=== PATIENT | male | born 1950 | race Caucasian/White ===

== ENCOUNTER 2020-05-26 14:22 | Emergency (ER) | payer OTHER, SELFPAY ==
--- NOTE | ~2020-05-26 | CT_ITS ---
EXAMINATION: CT HEAD/BRAIN WITHOUT CONTRAST CLINICAL INFORMATION: Trauma COMPARISON: None. TECHNIQUE: CT scanning from base of skull to vertex performed without IV contrast administration. This CT examination was performed using dose optimization techniques as appropriate, variously including the following: *Automated exposure control *Adjustment of mA and/or kV according to patient size (this includes techniques or standardized protocols for targeted exams where dose is matched to indication/reason for exam; i.e. extremities or head) *Use of iterative reconstruction technique DLP: 818 mGy-cm. FINDINGS: The ventricles, sulci, and cisterns appear unremarkable. No abnormal extra-axial fluid collection or intracranial hemorrhage is seen. No significant mass effect or midline structure shift is evident. There is a region of diminished density seen about the right frontal horn and frontal lobe consistent with vascular insult of unsure chronicity. There is also noted to be a region of diminished density about the anterior limb of the left internal capsule CT/CT facial bones wo con IMPRESSION: Regions of diminished density about the right frontal lobe and anterior limb of the left internal capsule consistent with vascular events. These are likely chronic. No intracranial hemorrhage or significant mass effect identified. EXAMINATION: CT FACIAL BONES WITHOUT CONTRAST CLINICAL INFORMATION: Head injury with head and facial pain COMPARISON: None. TECHNIQUE: CT scanning of the facial bones with coronal and sagittal reconstruction. This CT examination was performed using dose optimization techniques as appropriate, variously including the following: *Automated exposure control *Adjustment of mA and/or kV according to patient size (this includes techniques or standardized protocols for targeted exams where dose is matched to indication/reason for exam; i.e. extremities or head) *Use of iterative reconstruction technique DLP: 296 FINDINGS: No acute facial bone fractures identified. There is soft tissue swelling seen overlying the right orbit and frontal region. Small amount of gas is seen within the underlying soft tissues but without definite communication to sinuses. Paranasal sinuses are aerated without air-fluid levels. Small mucus retention cyst seen within the left maxillary sinus. Ostiomeatal complexes patent bilaterally. Mastoid air cells are aerated bilaterally. There is deviation of calcified nasal septum to the left centrally and into the right distally. Pterygoid plates intact. Temporomandibular joints unremarkable. Carotid artery calcifications are evident. IMPRESSION: No acute facial bone fracture. Soft tissue swelling overlying the right orbit and frontal region. No intraconal abnormality identified.
--- NOTE | ~2020-05-26 | CT_ITS ---
EXAMINATION: CT ORBIT WITH CONTRAST CLINICAL INFORMATION: Trauma to the eye. Question global rupture. COMPARISON: CT head 05/26/2020 TECHNIQUE: 3 mm thin axial and reformatted 2 mm thin sagittal and coronal images of orbits were obtained. This CT examination was performed using dose optimization techniques as appropriate, variously including the following: *Automated exposure control *Adjustment of mA and/or kV according to patient size (this includes techniques or standardized protocols for targeted exams where dose is matched to indication/reason for exam; i.e. extremities or head) *Use of iterative reconstruction technique DLP: 251 mGy-cm FINDINGS: Moderate right preseptal soft tissue swelling with soft tissue gas. There is no post septal soft tissue swelling. The right optic globe is intact. Bilateral intraocular lenses are intact as well. The bony orbits including lamina papyracea is intact. Bilateral extraocular musculature is intact. Bilateral paranasal sinuses and drainage pathways are widely patent. There is mark bullosa bilateral middle turbinates. The nasal septum is deviated to the left with a moderate-sized spur. The endometrium and the nasal cavity and nasopharynx is patent. Bilateral mastoid air cells are well-aerated. Visualized intracranial brain parenchyma is unremarkable. The maxillofacial soft tissues are normal. The parapharyngeal soft tissues are normal. CT/CT orbit BI w con IMPRESSION: Moderate right preseptal soft tissue swelling with soft tissue gas formation. No post septal soft tissue swelling or edema seen. The optic globes bilaterally are intact and symmetrical. The bony orbits including lamina papyracea intact The sinuses are clear.
[2020-05-26 14:49] VITALS: BP 145/86; PULSE 80; RESP 16; TEMP 37.1; O2SAT 95; BMI 30.9
[2020-05-26] MEDS: Diphth,Pertus(ACell),Tet Adult 0.5 ML SYRINGE IM (16:11)
[2020-05-26] MEDS: 0.9 % Sodium Chloride 1,000 ML 999 ML IVCONT (16:40)
[2020-05-26] MEDS: Lidocaine HCl 1 % MPF 5 ML VIAL SUBCUT (16:41)
[2020-05-26] MEDS: Tetracaine HCl/PF 0.5% Oph Sol 4 ML DROPS 3 DROP EYE-RIGHT (16:41)
[2020-05-26] MEDS: Fluorescein Sodium STRIP 1 STRIP EYE-BOTH (16:41)
[2020-05-26 16:42] LABS: MANUAL DIFF FLAG NO
[2020-05-26 16:50] LABS: Basophils Absolute Auto 0.1 X10*3/uL (0.0-0.2); Basophils Percent Auto 0.5 % (0-2); Eosinophils Absolute Auto 0.1 X10*3/uL (0.0-0.4); Hematocrit 44.4 % (42-52); Hemoglobin 14.7 g/dl (14.0-18.0); Imm Gran Abs Auto 0.07 X10*3/uL (0.00-0.03); Imm Gran Pct Auto 0.7 % (0.0-0.4); Lymphocytes Absolute Auto 0.9 X10*3/uL (1.2-4.9); Lymphocytes Percent Auto 8.4 % (20-40); Mean Corpuscular HGB Conc 33.1 g/dl (31.0-36.0); Mean Corpuscular Hemoglobin 32.4 pg (27.0-33.0); Mean Corpuscular Volume 97.8 fL (80-98); Mean Platelet Volume 10.4 fL (9.4-12.4); Monocytes Percent Auto 9.6 % (2-11); Neutrophils Absolute Auto 8.4 X10*3/uL (2.0-8.3); Neutrophils Percent Auto 79.8 % (45-73); Platelet Count 171 X10*3/uL (160-400); Red Blood Count 4.54 X10*6/uL (4.60-5.80); Red Cell Distribution Width 13.7 % (11.0-16.0); White Blood Count 10.5 X10*3/uL (4.8-10.8)
--- NOTE | 2020-05-26 17:03 | ED_ITS ---
HPI - Wound/Laceration General Chief Complaint: Wound/Laceration Stated Complaint: HEAD LACERATION WORK RELATED Time Seen by Provider: 05/26/20 15:28 Source: patient Mode of arrival: ambulatory Limitations: no limitations History of Present Illness HPI narrative: 69-year-old male presenting to the ED with a laceration to his right forehead prior to arrival at work when he went to bend over and did not notice there was a sheet of metal where he bent over and this is how he sustained a laceration. He reports that he had his safety glasses on and they flew off he immediately put his hand over his eye and then came here to the emergency department for further evaluation and treatment. Reports mild blurry vision to the right eye. patient denies any other injuries complaints or concerns at this time. Reports he is not up-to-date on tetanus. Related Data Previous Rx's Medication Instructions Recorded acetaminophen [Tylenol Extra 1,000 mg PO QID PRN #14 tab 05/26/20 Strength] cephalexin 500 mg PO BID 10 Days #20 cap 05/26/20 doxycycline monohydrate 100 mg PO BID 10 Days #20 cap 05/26/20 erythromycin 1 appl OPHTHALMIC (EYE) TID 5 Days 05/26/20 #3.5 g oxycodone 5 mg PO BID PRN #10 tab 05/26/20 Allergies Allergy/AdvReac Type Severity Reaction Status Date / Time No Known Allergies Allergy Unverified 11/06/19 18:53 [No Known Allergies*] Review of Systems Review of Systems: Constitutional : No Fever, No Chills, Cardiovascular : No Chest Pain, No SOB Respiratory : No Dyspnea Gastrointestinal : No abdominal pain Musculoskeletal : No Joint Swelling Skin : positive skin laceration, No Foreign bodies, No rash, No surrounding erythema Neuro : No Weakness, No Numbness/tingling Psych : No SI/HI/thoughts of self injury Yes all other systems are reviewed and are negative COUNTS INCLUDE 234 BEDS AT THE [facility] Past Medical History Attestation statement: The following information was validated with the patient. Medical History High cholesterol HTN (hypertension) Social History Social History Smoking Status: Current every day smoker Smoked in Last 30 Days: Yes Use of substances other than those prescribed or required for medical reasons: No Advance Directives: No Advance Directives Information Provided: No Physical Exam Vital Signs: Vital Signs: Last Vital Signs Temp 98.7 F 05/26/20 14:49 Pulse 80 05/26/20 14:49 Resp 16 05/26/20 14:49 BP 145/86 H 05/26/20 14:49 Pulse Ox 95 05/26/20 14:49 Body Mass Index 30.9 vital signs have been reviewed as normal and appeared to be correct. Blood pressure normal. Heart rate normal. Respiration rate normal. Temperature normal. Oxygen saturation normal. Appearance: Alert. Oriented X3. No acute distress. Head: To right forehead patient has a 3 cm intermediate laceration almost resembles a T. no foreign bodies or active bleeding. Eyes: Patient unable to open his right eye without assistance due to moderate soft tissue swelling and ecchymosis and To right eye scleral aspect patient has a subconjunctival hemorrhage unsure if global rupture at this time although PERRLA. EOMI. The left Conjunctiva and sclera normal. The left Eyelids normal. ENT:Pharynx normal. Uvula midline. Moist mucous membranes. Neck: Normal inspection. Neck supple. FROM. No adenopathy. Thyroid Normal. No meningeal signs. No neck mass noted. CVS: Normal heart rate and rhythm. Heart sound normal. No murmurs noted. Pulses normal throughout. Respiratory: No respiratory distress. Painless inspiration. Breath sounds normal. No wheezes/rales/rhonchi noted. Chest nontender. No accessory muscle usage noted or decreased air movement noted. Back: Full range of motion noted. Skin: Skin warm and dry. Normal skin color. Normal skin turgor. No rashes/lesions/lacerations noted. Extremities: Extremities exhibit normal range of motion. Extremities nontender. Neuro: Oriented X 3. No motor deficit. No sensory deficit. Reflexes normal. Course Course Course Narrative: 69-year-old male presenting to the ED with laceration to his right eyebrow in trauma to the right eye/orbital aspect. Unable to perform v isual acuity due to patient unable to open his right eye without assistance otherwise patient has extraocular movements intact. Pupils are equal and reactive to light. No fluorescein uptake noted. No foreign bodies noted. Therefore patient will need a CT scan of brain/facial bones and orbital CT with IV contrast. Patient is now status post laceration repair with [address] Patient tolerated procedure well no complications. Tetanus updated at this time. - labs obtained and within normal limits. - CT scan of brain/facial bones revealed soft tissue swelling no acute processes noted. - patient is currently awaiting orbital CT with IV contrast - Sign out to [facility] at this time pending orbital CT with IV contrast Procedures Laceration Laceration 1: Site: face Side (If applicable): right Size (cm): 3 Description: linear and flap Depth: involves muscle layer Local Anesthetic: lidocaine 1% Amount of anesthesia used (mL): 4 Pre-repair: wound explored, irrigated extensively and deep structures intact Skin layer closed with: nylon Size (cm): 5-0 Number of sutures: 10 Technique: simple, interrupted MDM - Wound/Laceration Medical Records Attestation: I reviewed the patient's medical records. Lab Data Attestation: I reviewed the patient's lab results. Result diagrams: 05/26/20 16:33 05/26/20 16:33 Labs: Lab Results 05/26/20 Range/Units 16:33 WBC 10.5 (4.8-10.8) X10*3/uL RBC 4.54 L (4.60-5.80) X10*6/uL Hgb 14.7 (14.0-18.0) g/dl Hct 44.4 (42-52) % MCV 97.8 (80-98) fL MCH 32.4 (27.0-33.0) pg MCHC 33.1 (31.0-36.0) g/dl RDW 13.7 (11.0-16.0) % Plt Count 171 (160-400) X10*3/uL MPV 10.4 (9.4-12.4) fL Immature Gran % (Auto) 0.7 H (0.0-0.4) % Neut % (Auto) 79.8 H (45-73) % Lymph % (Auto) 8.4 L (20-40) % [place] % (Auto) 9.6 (2-11) % Eos % (Auto) 1.0 (0-4) % Baso % (Auto) 0.5 (0-2) % Lymph # (Auto) 0.9 L (1.2-4.9) X10*3/uL [place] # (Auto) 1.0 (0.1-1.2) X10*3/uL Eos # (Auto) 0.1 (0.0-0.4) X10*3/uL Baso # (Auto) 0.1 (0.0-0.2) X10*3/uL Abs Immat Gran (auto) 0.07 H (0.00-0.03) X10*3/uL Absolute Neuts (auto) 8.4 H (2.0-8.3) X10*3/uL Absolute Nucleated RBC 0.000 (0.0-0.012) X10*3/uL Nucleated RBC % (auto) 0.0 (0.0-0.2) /100WBC Imaging Data CT scan of brain/facial bones: Attestation: I personally reviewed and interpreted this imaging study as follows: Radiologist's impression: FINDINGS: The ventricles, sulci, and cisterns appear unremarkable. No abnormal extra-axial fluid collection or intracranial hemorrhage is seen. No significant mass effect or midline structure shift is evident. There is a region of diminished density seen about the right frontal horn and frontal lobe consistent with vascular insult of unsure chronicity. There is also noted to be a region of diminished density about the anterior limb of the left internal capsule CT/CT head/brain wo con IMPRESSION: Regions of diminished density about the right frontal lobe and anterior limb of the left internal capsule consistent with vascular events. These are likely chronic. No intracranial hemorrhage or significant mass effect identified. EXAMINATION: CT FACIAL BONES WITHOUT CONTRAST CLINICAL INFORMATION: Head injury with head and facial pain COMPARISON: None. TECHNIQUE: CT scanning of the facial bones with coronal and sagittal reconstruction. This CT examination was performed using dose optimization techniques as appropriate, variously including the following: *Automated exposure control *Adjustment of mA and/or kV according to patient size (this includes techniques or standardized protocols for targeted exams where dose is matched to indication/reason for exam; i.e. extremities or head) *Use of iterative reconstruction technique DLP: 296 FINDINGS: No acute facial bone fractures identified. There is soft tissue swelling seen overlying the right orbit and frontal region. Small amount of gas is seen within the underlying soft tissues but without definite communication to sinuses. Paranasal sinuses are aerated without air-fluid levels. Small mucus retention cyst seen within the left maxillary sinus. Ostiomeatal complexes patent bilaterally. Mastoid air cells are aerated bilaterally. There is deviation of calcified nasal septum to the left centrally and into the right distally. Pterygoid plates intact. Temporomandibular joints unremarkable. Carotid artery calcifications are evident. IMPRESSION: No acute facial bone fracture. Soft tissue swelling overlying the right orbit and frontal region. No intraconal abnormality identified. Critical Care Time Critical Care Time Critical Care Time: Yes Total Critical Care Time: 60 Attestation: I personally attest to this time spent taking care of the patient Discharge Plan Discharge Clinical Impression: Laceration, Traumatic ecchymosis of right eye Prescriptions: New erythromycin 5 mg/gram (0.5 %) ointment 1 appl ophthalmic (eye) TID 5 Days Qty: 3.5 RF: 0 acetaminophen [Tylenol Extra Strength] 500 mg tablet 1,000 mg PO QID PRN (Reason: fever or pain) Qty: 14 RF: 0 doxycycline monohydrate 100 mg capsule 100 mg PO BID 10 Days Qty: 20 RF: 0 cephalexin 500 mg capsule 500 mg PO BID 10 Days Qty: 20 RF: 0 oxycodone 5 mg tablet 5 mg PO BID PRN (Reason: pain) Qty: 10 RF: 0 Referrals: Mike Elliott [Physician] - 1 day Carleen Chavez PA [Emergency Midlevel Provider] - 5 days (For suture removal) Stand Alone Forms: Work/School Release
[2020-05-26 17:07] LABS: Prothrombin Time 11.7 SEC (10.8-13.0)
[2020-05-26 17:12] LABS: COVID-19 Test Negative (Negative)
[2020-05-26 17:16] LABS: Alanine Aminotransferase 35 U/L (0-40); Albumin Level 4.5 g/dL (3.5-5.0); Alkaline Phosphatase 115 U/L (39-117); Anion Gap 13 (12-20); Aspartate Amino Transferase 44 U/L (5-37); Bilirubin Direct 0.3 mg/dL (0.0-0.5); Blood Urea Nitrogen 22 mg/dL (9-16); Calcium 9.7 mg/dL (8.4-10.2); Carbon Dioxide 29 mmol/L (22-29); Chloride 102 mmol/L (96-108); Estimated Glomerular Filt Rate > 60; Glucose Random 92 mg/dL (60-115); Magnesium 2.2 mg/dL (1.6-2.6); Potassium 5.4 mmol/L (3.3-5.1); Sodium 139 mmol/L (135-145); Total Protein 7.5 g/dL (6.5-8.0)
--- NOTE | 2020-05-26 17:34 | PC.NURSE ---
PT UNABLE TO HAVE EYE OPEN DO TO SWELLING FOR VISUAL IQ TEST.
[2020-05-26] MEDS: iohexoL 350 MG/ML 100 ML INFUS..BTL IV (18:26)
== END 2020-05-26 20:49 | disposition home or self-care (01) ==
PROVIDERS: Physician Assistant Medical; Emergency Provider Emergency Medicine Emergency Medical Services; PCP Family Medicine
DX: S01.81XA Laceration without foreign body of other part of head, initial encounter (principal); G44.309 Post-traumatic headache, unspecified, not intractable; W01.0XXA Fall on same level from slipping, tripping and stumbling without subsequent striking against object, initial encounter; Y93.9 Activity, unspecified; Y92.69 Other specified industrial and construction area as the place of occurrence of the external cause; Y99.0 Civilian activity done for income or pay; Z20.822 Contact with and (suspected) exposure to COVID-19; Z79.899 Other long term (current) drug therapy; F17.210 Nicotine dependence, cigarettes, uncomplicated; Z71.6 Tobacco abuse counseling
CPT/HCPCS: 12052; 36415; 70450; 70481; 70486; 80048; 80076; 83735; 85025; 85610; 87635; 90471; 90715; 96360; 99284; Q9967

== ENCOUNTER 2020-06-01 11:27 | Emergency (ER) | payer OTHER, SELFPAY ==
[2020-06-01 11:34] VITALS: BP 190/80; PULSE 65; RESP 16; TEMP 36.9; O2SAT 98; BMI 26.4
--- NOTE | 2020-06-01 11:52 | ED.WOUNDLAC ---
HPI - Wound/Laceration General Chief Complaint: Wound/Laceration <WAGNER Bello - Last Filed: 06/05/20 11:16> Stated Complaint: suture removal <WAGNER Bello - Last Filed: 06/05/20 11:16> Time Seen by Provider: 06/01/20 11:52 <WAGNER Bello - Last Filed: 06/05/20 11:16> History of Present Illness HPI narrative: Patient presents for suture removal after an injury 5 days ago which was sutured here in the ER, the patient denies any fever or swelling or redness or discharge from the wound which is above his right eyebrow, he also has some swelling around the eye and has already followed up with an eye doctor who said no further treatment needed for the eye and he is seeing normally out of the eye <WAGNER Bello - Last Filed: 06/05/20 11:16> Related Data Home Medications: Previous Rx's Medication Instructions Recorded acetaminophen [Tylenol Extra 1,000 mg PO QID PRN #14 tab 05/26/20 Strength] cephalexin 500 mg PO BID 10 Days #20 cap 05/26/20 doxycycline monohydrate 100 mg PO BID 10 Days #20 cap 05/26/20 erythromycin 1 appl OPHTHALMIC (EYE) TID 5 Days 05/26/20 #3.5 g oxycodone 5 mg PO BID PRN #10 tab 05/26/20 <WAGNER Bello - Last Filed: 06/05/20 11:16> Allergies/Adverse Reactions: Allergies Allergy/AdvReac Type Severity Reaction Status Date / Time No Known Allergies Allergy Unverified 11/06/19 18:53 [No Known Allergies*] <WAGNER Bello - Last Filed: 06/05/20 11:16> Review of Systems Review of Systems: Presents for suture removal No fever no chills no redness no warmth no pain no discharge from wound no numbness or tingling <WAGNER Bello Last Filed: 06/05/20 11:16> PMFSH Past Medical History Source: nursing notes reviewed <WAGNER Bello Last Filed: 06/05/20 11:16> Medical History: Medical History High cholesterol HTN (hypertension) <WAGNER Bello Last Filed: 06/05/20 11:16> Social History Social History: Social History Smoking Status: Current every day smoker Advance Directives: No Advance Directives Information Provided: Yes <WAGNER Bello - Last Filed: 06/05/20 11:16> Physical Exam Vital Signs: Vital Signs: Last Vital Signs Temp 98.5 F 06/01/20 11:34 Pulse 65 06/01/20 11:34 Resp 16 06/01/20 11:34 BP 190/80 H 06/01/20 11:34 Pulse Ox 98 06/01/20 11:34 Body Mass Index 26.4 <WAGNER Bello - Last Filed: 06/05/20 11:16> Vital Signs: Last Vital Signs Temp 98.5 F 06/01/20 11:34 Pulse 65 06/01/20 11:34 Resp 16 06/01/20 11:34 BP 190/80 H 06/01/20 11:34 Pulse Ox 98 06/01/20 11:34 Body Mass Index 26.4 <Phi Miles MD - Last Filed: 06/16/20 08:08> Patient has come comfortable cooperative any D The facial exam there are [address] above the right eyebrow which is showing no sign of wound dehiscence, there is no discharge no redness no warmth no swelling no tenderness no sign of infection Extremities full range of motion x4 Neuro no focal deficit <WAGNER Bello - Last Filed: 06/05/20 11:16> Course Course Course Narrative: Right eyebrow laceration sutures are removed, there is no wound dehiscence and no sign of infection <WAGNER Bello - Last Filed: 06/05/20 11:16> I have reviewed the chart <Phi Miles MD - Last Filed: 06/16/20 08:08> Discharge Plan Discharge Clinical Impression: Visit for suture removal <WAGNER Bello - Last Filed: 06/05/20 11:16> Patient Disposition: Home, Self-Care <WAGNER Bello - Last Filed: 06/05/20 11:16> Additional Instructions: Stitches were removed No sign of any infection Okay to wash gently with soap and water Return any concerns <WAGNER Bello - Last Filed: 06/05/20 11:16> Prescriptions: No Action erythromycin 5 mg/gram (0.5 %) ointment 1 appl ophthalmic (eye) TID 5 Days Qty: 3.5 RF: 0 acetaminophen [Tylenol Extra Strength] 500 mg tablet 1,000 mg PO QID PRN (Reason: fever or pain) Qty: 14 RF: 0 doxycycline monohydrate 100 mg capsule 100 mg PO BID 10 Days Qty: 20 RF: 0 cephalexin 500 mg capsule 500 mg PO BID 10 Days Qty: 20 RF: 0 oxycodone 5 mg tablet 5 mg PO BID PRN (Reason: pain) Qty: 10 RF: 0 <WAGNER Bello - Last Filed: 06/05/20 11:16> Interventions: ED Discharge Assessment Last Done: 06/01/20 12:07 <WAGNER Bello - Last Filed: 06/05/20 11:16> Discharge Date/Time: 06/01/20 12:07 <WAGNER Bello - Last Filed: 06/05/20 11:16>
== END 2020-06-01 12:07 | disposition home or self-care (01) ==
PROVIDERS: Emergency Provider Emergency Medicine; PCP Family Medicine
DX: Z48.02 Encounter for removal of sutures (principal); S01.111D Laceration without foreign body of right eyelid and periocular area, subsequent encounter; X58.XXXD Exposure to other specified factors, subsequent encounter
CPT/HCPCS: 99283

== ENCOUNTER → 2020-07-21 09:11 | Outpatient (BNVA) | payer OTHER, SELFPAY | PROVIDERS: PCP Family Medicine; Visit Provider Physician Assistant Medical | DX: S05.31XD Ocular laceration without prolapse or loss of intraocular tissue, right eye, subsequent encounter (principal); W22.8XXD Striking against or struck by other objects, subsequent encounter | CPT/HCPCS: 99203 ==

== ENCOUNTER → 2020-08-06 09:07 | Outpatient (BNVA) | payer OTHER, SELFPAY | PROVIDERS: PCP Family Medicine; Visit Provider Internal Medicine | DX: S05.41XD Penetrating wound of orbit with or without foreign body, right eye, subsequent encounter (principal); X58.XXXD Exposure to other specified factors, subsequent encounter; H54.7 Unspecified visual loss | CPT/HCPCS: 99214 ==

== ENCOUNTER → 2020-08-20 10:00 | Outpatient (BNVA) | payer OTHER, SELFPAY | PROVIDERS: PCP Family Medicine; Visit Provider Internal Medicine | DX: H53.2 Diplopia (principal) | CPT/HCPCS: 99213 ==

== ENCOUNTER → 2020-08-30 07:59 | Outpatient (BNVA) | payer OTHER, SELFPAY | PROVIDERS: PCP Family Medicine; Visit Provider Internal Medicine | DX: H53.2 Diplopia (principal); H49.21 Sixth [abducent] nerve palsy, right eye; H53.481 Generalized contraction of visual field, right eye | CPT/HCPCS: 99213 ==